=== PATIENT | female | born 1975 | race Two or more races ===

== ENCOUNTER 2018-05-10 12:54 | Observation (INO) | payer OTHER ==
[2018-05-10 13:07] VITALS: BMI 27.4
--- NOTE | 2018-05-10 14:22 | PDOC ---
History of Present Illness - General Chief Complaint: Blood Transfusion Stated Complaint: BLOOD TRANSFUSION (PCP SENT) Time Seen by Provider: 05/10/18 14:21 - History of Present Illness Initial Comments: 05/13/18 19:38 43 year old w/ history of RA, chronic anemia, hypothyroidism, uterine fibroids and fibromyalgia who was sent by her PCP for follow up on laboratory findings 2 weeks ago and possible blood transfusion. The patient admits to some feelings of weakness, but denies lightheadedness, excessive vaginal bleedings, blood in urine or stool, fevers, N/V/D/C, chest pain, sob or abdominal pain. PMHX: as in HPI PSHX: none Meds: levothyroxine Allergies: penicillin Tob: none Etoh: none Rec drugs: none Past History - Past Medical History Allergies/Adverse Reactions: Allergies Allergy/AdvReac Type Severity Reaction Status Date / Time iron [From Venofer] Allergy Verified 05/10/18 18:46 Penicillins Allergy Hives Verified 05/10/18 19:38 Home Medications: Ambulatory Orders Levothyroxine [Synthroid -] 0.137 mcg PO DAILY 07/05/12 Anemia: Yes (2 blood transfusions) CVA: No COPD: No Disorders: Yes (fibroids) Thyroid Disease: Yes (hypothyroid) Other medical history: fibromyalgia, rheumatoid arthritis, 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 - Suicide/Smoking/Psychosocial Hx Smoking Status: No Smoking History: Never smoked Have you smoked in the past 12 months: No Number of Cigarettes Smoked Daily: 0 Information on smoking cessation initiated: No Hx Alcohol Use: No Drug/Substance Use Hx: No Substance Use Type: Alcohol Review of Systems - Review of Systems Able to Perform ROS?: Yes Is the patient limited Thai proficient: No Constitutional: No: Chills, Fever HEENTM: No: Tinnitus Respiratory: No: Cough, Shortness of Breath Cardiac (ROS): No: Chest Pain, Lightheadedness, Palpitations ABD/GI: No: Constipated, Diarrhea, Nausea, Rectal Bleeding, Vomiting : No: Burning, Dysuria, Hematuria Neurological: No: Headache *Physical Exam - Vital Signs Last Vital Signs Temp Pulse Resp BP Pulse Ox 98.4 F 100 H 20 127/77 100 05/10/18 12:59 05/10/18 12:59 05/10/18 12:59 05/10/18 12:59 05/10/18 12:59 - Physical Exam Comments: GENERAL: Awake, alert, and fully oriented, in no acute distress HEAD: No signs of trauma, normocephalic, atraumatic EYES: PERRLA, EOMI, sclera anicteric, + conjunctival pallor ENT: oropharynx clear without exudates. Moist mucosa NECK: Normal ROM LUNGS: No distress, speaks full sentences, clear to auscultation bilaterally HEART: Regular rate and rhythm, normal S1 and S2, no murmurs, rubs or gallops, peripheral pulses normal and equal bilaterally. ABDOMEN: Soft, nontender, normoactive bowel sounds. No guarding, no rebound. No masses EXTREMITIES : Normal inspection, Normal range of motion, no edema. No clubbing or cyanosis. NEUROLOGICAL:Normal speech, normal gait, no focal sensorimotor deficits SKIN: Warm, Dry, normal turgor, no rashes or lesions noted ED Treatment Course - LABORATORY CBC & Chemistry Diagram: 05/11/18 08:25 05/11/18 08:25 Medical Decision Making - Medical Decision Making 43 year old w/ history of chronic anemia, RA, hyrpothyroidism, uterine fibroids , fibromyalgia who presents with Hb of 7.7 and sent be her PCP for possible transfusion. Martin (PCP) was contacted regarding the patient. She confirms patient's history and that she advised patient to come to ED once lab results were read. Bloodwork will be done to assess the patient for transfusion. HB 7, Patient type and crossed. Patient ready for transfusions and admitted to observation. *DC/Admit/Observation/Transfer Diagnosis at time of Disposition: Anemia - Discharge Dispostion Disposition: HOME Condition at time of disposition: Improved - Referrals - Patient Instructions - Post Discharge Activity
--- NOTE | 2018-05-10 14:30 | PDOC ---
Attending Attestation - Resident Resident Name: Elicia Longo - ED Attending Attestation I have performed the following: I have examined & evaluated the patient, The case was reviewed & discussed with the resident, I agree w/resident's findings & plan, Exceptions are as noted - HPI HPI: 05/10/18 16:16 The patient is a 43 year old female, with a significant past medical history of rheumatoid arthritis and Deb's thyroiditis, who presents to the emergency department with, a hemoglobin of 7. As per patient, she had her blood drawn at Dr. Cheng outpatient clinic. She reports that Dr. Salazar called her that her hemoglobin was 7 and she needed to report to the ED for a blood transfusion. As per Dr. Salazar, her hemoglobin is normally between 9-10. The patient is scheduled to get her menses next week. She reports associated shortness of breath and chest pain which she describes as normal to her. She denies recent fevers, chills, headache or dizziness. She denies recent nausea, vomit, diarrhea or constipation. She denies recent dysuria, frequency, urgency or hematuria. Allergies: Penicillins. Social history: Nonsmoker. Denies EtOH use and recreational drug use. Primary Care Physician: Dr. Connie Salazar - Physicial Exam PE: 05/10/18 16:17 +GENERAL: Slightly pale. Awake, alert, and fully oriented, in no acute distress HEAD: No signs of trauma EYES: PERRLA, EOMI, sclera anicteric, conjunctiva clear ENT: Auricles normal inspection, hearing grossly normal, nares patent, oropharynx clear without exudates. Moist mucosa NECK: Normal ROM, supple, no lymphadenopathy, JVD, or masses LUNGS: Breath sounds equal, clear to auscultation bilaterally. No wheezes, and no crackles HEART: Regular rate and rhythm, normal S1 and S2, no murmurs, rubs or gallops ABDOMEN: Soft, nontender, normoactive bowel sounds. No guarding, no rebound. No masses EXTREMITIES: Normal range of motion, no edema. No clubbing or cyanosis. No cords, erythema, or tenderness NEUROLOGICAL: Cranial nerves II through XII grossly intact. Normal speech, normal gait SKIN: Warm, Dry, normal turgor, no rashes or lesions noted. <Richard Davila - Last Filed: 05/10/18 16:16> - Medical Decision Making 05/10/18 18:07 Pt presents to the ED complaining of intermittent lightheadness. Sent in from PMD's office for hgb of 7.7--hgb is 7 on repeat labs here. PAtient is only midly symptomatic, but has a history of heavy menstrual bleeds with drop in her Hgb afterward, and is expecting her menses within a couple of days. Will admit to observation for transfusion. <Violetta Mccormack - Last Filed: 05/10/18 18:10> Attestations - Attestations 05/10/18 16:16 Documentation prepared by Richard Davila, acting as medical recruiter for Violetta Mccormack MD. <Richard Davila - Last Filed: 05/10/18 16:16>
[2018-05-10 15:08] LABS: BASO % 1.6 % (0-2.0); EOS % 2.5 % (0-4.5); HEMATOCRIT 22.8 % (32.4-45.2); LYMPH % 29.9 % (8-40); MCHC 30.9 g/dl (32.0-36.0); MEAN CELL VOLUME 58.8 fl (80-96); MEAN PLT VOLUME 8.6 fl (7.5-11.1); MONO % 11.7 % (3.8-10.2); NEUT % 54.3 % (42.8-82.8); PLATELET COUNT 220 K/MM3 (134-434); RBC 3.87 M/mm3 (3.60-5.2); WHITE BLOOD COUNT 3.1 K/mm3 (4.0-10.0)
[2018-05-10 15:09] LABS: MCH 18.2 pg (25.7-33.7)
[2018-05-10 16:42] LABS: ALBUMIN 3.8 g/dl (3.4-5.0); ANION GAP 8 (8-16); BILIRUBIN,TOTAL 0.3 mg/dL (0.2-1.0); BLOOD UREA NITROGEN 9 mg/dL (7-18); CALCIUM 8.2 mg/dL (8.5-10.1); CHLORIDE 110 mmol/L (98-107); CO2 24 mmol/L (21-32); CREATININE 0.6 mg/dL (0.55-1.02); GLUCOSE,RANDOM 97 mg/dL (74-106); SGPT/ALT 21 U/L (12-78); SODIUM 142 mmol/L (136-145); TOT PROT 7.1 g/dl (6.4-8.2)
[2018-05-10 16:43] LABS: ALK PHOS 145 U/L (45-117)
[2018-05-10 16:44] LABS: POTASSIUM 4.1 mmol/L (3.5-5.1); SGOT/AST 16 U/L (15-37)
--- NOTE | 2018-05-10 17:32 | HP ---
CHIEF COMPLAINT: sent by PCP for blood transfusion secondary to anemia found on routine lab PCP: Dr. Salazar HISTORY OF PRESENT ILLNESS: Patient is a 43 year old female with a significant past medical history of rheumatoid arthritis, cherelle's thyroiditis and uterine fibroids. She was sent to the ED today by her primary care physician after CBC done at PCP office showed hmg of 7. Patient hmg is usually between 9-10 per ED signout. Patient reports that she is scheduled to get her menses next week and usually bleeds heavy and at times with clots. She reports that she at times may get her menses twice per month. 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 Patient reports fatigue, loss of energy and shortness of breath with exertion. Patient is here for 2 units of PRBC, we will repeat her labs in a.m. and evaluate for improvement. She denies recent fevers, chills, headache or dizziness. She denies recent nausea, vomit, diarrhea or constipation. She denies recent dysuria, frequency, urgency or hematuria. Patient further reports an allergic reaction to IV venofer in the past where she became short of breath and had to be given steriods and nebulizers. ER course was notable for: (1) wbc 3.1 (2) hmg/hct 7.0/22.8 (3) stool occult blood negative Recent Travel: PAST MEDICAL HISTORY: rheumatoid arthritis, cherelle's thyroiditis and uterine fibroids. PAST SURGICAL HISTORY: Social History: Smoking: denies Alcohol: denies Drugs: denies Family History: Allergies Penicillins Allergy (Verified 07/05/12 19:44) Hives HOME MEDICATIONS: Home Medications Medication Instructions Recorded EPINEPHrine (EPI-PEN 0.3MG) 0.3 mg IM ASDIR #2 pens 07/05/12 [Epipen 0.3MG -] Levothyroxine [Synthroid] 0.137 mg PO DAILY 07/05/12 PHYSICAL EXAMINATION Vital Signs - 24 hr 05/10/18 05/10/18 05/10/18 12:59 16:29 17:10 Temperature 98.4 F 98.2 F 98.2 F Pulse Rate 100 H Pulse Rate [ 78 90 Left Apical] Respiratory 20 18 16 Rate Blood Pressure 127/77 Blood Pressure 112/71 119/51 [Left Arm] O2 Sat by Pulse 100 98 98 Oximetry (%) GENERAL: Awake, alert, and fully oriented, in no acute distress. HEAD: Normal with no signs of trauma. EYES: Pupils equal, round and reactive to light, extraocular movements intact, sclera anicteric, conjunctiva clear. No lid lag. EARS, NOSE, THROAT: Ears normal, nares patent, oropharynx clear without exudates. Moist mucous membranes. NECK: Normal range of motion, supple without lymphadenopathy, JVD, or masses. LUNGS: Breath sounds equal, clear to auscultation bilaterally. mild dry cough, non productive HEART: Regular rate and rhythm ABDOMEN: Soft, nontender, not distended, normoactive bowel sounds, no guarding, no rebound, no masses. No hepatomegaly or splenomegaly. MUSCULOSKELETAL: Normal range of motion at all joints. No bony deformities or tenderness. No CVA tenderness. UPPER EXTREMITIES: 2+ pulses, warm, well-perfused. No cyanosis. No clubbing. No peripheral edema. LOWER EXTREMITIES: 2+ pulses, warm, well-perfused. No calf tenderness. No peripheral edema. NEUROLOGICAL: Cranial nerves II-XII intact. Normal speech. Normal gait. PSYCHIATRIC: Cooperative. Good eye contact. Appropriate mood and affect. SKIN: Warm, dry, normal turgor, no rashes or lesions noted, normal capillary refill. Laboratory Results - last 24 hr 05/10/18 05/10/18 05/10/18 15:00 15:00 15:00 WBC 3.1 L RBC 3.87 Hgb 7.0 L Hct 22.8 L MCV 58.8 L MCH 18.2 L MCHC 30.9 L RDW 21.0 H Plt Count 220 D MPV 8.6 Absolute Neuts (auto) 1.7 Neutrophils % 54.3 D Lymphocytes % 29.9 D Monocytes % 11.7 H Eosinophils % 2.5 Basophils % 1.6 Nucleated RBC % 0 Sodium Potassium Chloride Carbon Dioxide Anion Gap BUN Creatinine Creat Clearance w eGFR Random Glucose Calcium Total Bilirubin AST ALT Alkaline Phosphatase Total Protein Albumin Urine HCG, Qual Negative Stool Occult Blood Blood Type O POSITIVE Antibody Screen Negative Crossmatch See Detail 05/10/18 05/10/18 15:37 15:55 WBC RBC Hgb Hct MCV MCH MCHC RDW Plt Count MPV Absolute Neuts (auto) Neutrophils % Lymphocytes % Monocytes % Eosinophils % Basophils % Nucleated RBC % Sodium 142 Potassium 4.1 Chloride 110 H Carbon Dioxide 24 Anion Gap 8 BUN 9 Creatinine 0.6 Creat Clearance w eGFR > 60 Random Glucose 97 Calcium 8.2 L Total Bilirubin 0.3 AST 16 ALT 21 Alkaline Phosphatase 145 H Total Protein 7.1 Albumin 3.8 Urine HCG, Qual Stool Occult Blood Negative Blood Type Antibody Screen Crossmatch ASSESSMENT/PLAN: Patient is a 43 year old female with a significant past medical history of rheumatoid arthritis, cherelle's thyroiditis and uterine fibroids. She was sent to the ED today by her primary care physician after CBC done at PCP office showed hmg of 7. Patient is here for 2 units of PRBC. Hematology: Chronic anemia: For 2 units of prbc today, repeat CBC in a.m. Patient reports allergy of IV venofer, allergy listed. Monitor labs,vitals. 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 Patient to follow up with RAILROAD BRAKE REPAIRER this Thursday. Endocrine: Hashimotos thyroidisis: On Synthroid fen tolerating PO monitor electrolytes regular diet prophy ambulation On observation. full code Visit type - Emergency Visit Emergency Visit: Yes ED Registration Date: 05/10/18 Care time: The patient presented to the Emergency Department on the above date and was hospitalized for further evaluation of their emergent condition. - New Patient This patient is new to me today: Yes Date on this admission: 05/11/18 - Critical Care Critical Care patient: No Hospitalist Screening - Colonoscopy Questionnaire Colonoscopy Questionnaire: Colonoscopy Questionnaire - Patient: 50 - 75 years old and never had a screening colonoscopy: Unknown History of colon or rectal polyps, or CA: Unknown History of IBD, Crohn's disease or UC: Unknown History of abdominal radiation therapy as a child: Unknown - Relative: 1 with colon or rectal CA, or polyps at age 60 or younger: Unknown Colon or rectal CA diagnosed at age 45 or younger: Unknown Multiple relatives with colon or rectal CA: Unknown - Outcome: Screening Result: Negative Screen
[2018-05-10] MEDS ORDERED: ACETAMINOPHEN 325 MG TABLET (FP) PO PRN (17:58)
[2018-05-10] MEDS ORDERED: RANITIDINE HCL 150 MG TABLET (FP) PO ONE (18:35)
[2018-05-10 18:39] LABS: ANISOCYTOSIS 3+; PLATELET ESTIMATE ADEQUATE
[2018-05-10] MEDS ORDERED: RANITIDINE HCL 150 MG TABLET (FP) PO SCH (22:00)
[2018-05-11] MEDS ORDERED: LEVOTHYROXINE NA 112 MCG TABLET (FP) ONE (06:16)
[2018-05-11] MEDS ORDERED: LEVOTHYROXINE NA 25 MCG TABLET (FP) ONE (06:16)
[2018-05-11 06:19] VITALS: PULSE 79
[2018-05-11] MEDS ORDERED: LEVOTHYROXINE 112 MCG, LEVOTHYROXINE 25 MCG PO SCH (07:00)
[2018-05-11 09:08] VITALS: BP 127/69; TEMP 97.8
[2018-05-11 09:12] LABS: HEMATOCRIT 29.3 % (32.4-45.2); HEMOGLOBIN 9.4 GM/dL (10.7-15.3); MCH 20.7 pg (25.7-33.7); MCHC 32.3 g/dl (32.0-36.0); MEAN CELL VOLUME 64.1 fl (80-96); MEAN PLT VOLUME 8.5 fl (7.5-11.1); PLATELET COUNT 206 K/MM3 (134-434); RBC 4.56 M/mm3 (3.60-5.2); RDW 26.8 % (11.6-15.6); WHITE BLOOD COUNT 4.3 K/mm3 (4.0-10.0)
[2018-05-11 09:25] LABS: ALBUMIN 3.5 g/dl (3.4-5.0); ANION GAP 7 (8-16); BLOOD UREA NITROGEN 11 mg/dL (7-18); CALCIUM 8.3 mg/dL (8.5-10.1); CHLORIDE 109 mmol/L (98-107); CO2 24 mmol/L (21-32); CREATININE 0.6 mg/dL (0.55-1.02); GLUCOSE,RANDOM 103 mg/dL (74-106); MAGNESIUM 1.9 mg/dL (1.8-2.4); SGOT/AST 13 U/L (15-37); SGPT/ALT 21 U/L (12-78); SODIUM 140 mmol/L (136-145)
[2018-05-11 09:27] LABS: ALK PHOS 140 U/L (45-117); BILIRUBIN,TOTAL 0.5 mg/dL (0.2-1.0); TOT PROT 6.9 g/dl (6.4-8.2)
[2018-05-11] MEDS ORDERED: LEVOTHYROXINE NA 25 MCG TABLET (FP) PO SCH (10:00)
--- NOTE | 2018-05-11 11:36 | DS ---
Physical Exam: SUBJECTIVE: Patient seen and examined at the bedside. Feels well, symptoms improve. In no acute distress. Tolerated blood transfusion well. No issues overnight. OBJECTIVE: Patient received 2 units of blood on admission, to follow up with PCP and [employer] [employer] outpatient. Vital Signs Period Temp Pulse Resp BP Sys/Young Pulse Ox Last 24 Hr 97.8 F-99.0 F 73-100 16-20 108-142/51-77 98-100 PHYSICAL EXAM GENERAL: Awake, alert, and fully oriented, in no acute distress. HEAD: Normal with no signs of trauma. EYES: Pupils equal, round and reactive to light, extraocular movements intact, sclera anicteric, conjunctiva clear. No lid lag. EARS, NOSE, THROAT: Ears normal, nares patent, oropharynx clear without exudates. Moist mucous membranes. NECK: Normal range of motion, supple without lymphadenopathy, JVD, or masses. LUNGS: Breath sounds equal, clear to auscultation bilaterally. mild dry cough, non productive HEART: Regular rate and rhythm ABDOMEN: Soft, nontender, not distended, normoactive bowel sounds, no guarding, no rebound, no masses. No hepatomegaly or splenomegaly. MUSCULOSKELETAL: Normal range of motion at all joints. No bony deformities or tenderness. No CVA tenderness. UPPER EXTREMITIES: 2+ pulses, warm, well-perfused. No cyanosis. No clubbing. No peripheral edema. LOWER EXTREMITIES: 2+ pulses, warm, well-perfused. No calf tenderness. No peripheral edema. NEUROLOGICAL: Cranial nerves II-XII intact. Normal speech. Normal gait. PSYCHIATRIC: Cooperative. Good eye contact. Appropriate mood and affect. SKIN: Warm, dry, normal turgor, no rashes or lesions noted, normal capillary refill. LABS Laboratory Results - last 24 hr 05/10/18 05/10/18 05/10/18 15:00 15:00 15:00 WBC 3.1 L RBC 3.87 Hgb 7.0 L Hct 22.8 L MCV 58.8 L MCH 18.2 L MCHC 30.9 L RDW 21.0 H Plt Count 220 D MPV 8.6 Absolute Neuts (auto) 1.7 Neutrophils % 54.3 D Lymphocytes % 29.9 D Monocytes % 11.7 H Eosinophils % 2.5 Basophils % 1.6 Nucleated RBC % 0 Hypochromia 2+ Platelet Estimate Adequate Anisocytosis 3+ Microcytosis 3+ Sodium Potassium Chloride Carbon Dioxide Anion Gap BUN Creatinine Creat Clearance w eGFR Random Glucose Calcium Magnesium Total Bilirubin AST ALT Alkaline Phosphatase Total Protein Albumin Urine HCG, Qual Negative Stool Occult Blood Blood Type O POSITIVE Antibody Screen Negative Crossmatch See Detail 05/10/18 05/10/18 05/11/18 15:37 15:55 08:25 WBC 4.3 RBC 4.56 Hgb 9.4 L Hct 29.3 L D MCV 64.1 L D MCH 20.7 L D MCHC 32.3 RDW 26.8 H Plt Count 206 MPV 8.5 Absolute Neuts (auto) Neutrophils % Lymphocytes % Monocytes % Eosinophils % Basophils % Nucleated RBC % Hypochromia Platelet Estimate Anisocytosis Microcytosis Sodium 142 Potassium 4.1 Chloride 110 H Carbon Dioxide 24 Anion Gap 8 BUN 9 Creatinine 0.6 Creat Clearance w eGFR > 60 Random Glucose 97 Calcium 8.2 L Magnesium Total Bilirubin 0.3 AST 16 ALT 21 Alkaline Phosphatase 145 H Total Protein 7.1 Albumin 3.8 Urine HCG, Qual Stool Occult Blood Negative Blood Type Antibody Screen Crossmatch 05/11/18 08:25 WBC RBC Hgb Hct MCV MCH MCHC RDW Plt Count MPV Absolute Neuts (auto) Neutrophils % Lymphocytes % Monocytes % Eosinophils % Basophils % Nucleated RBC % Hypochromia Platelet Estimate Anisocytosis Microcytosis Sodium 140 Potassium 4.0 Chloride 109 H Carbon Dioxide 24 Anion Gap 7 L BUN 11 Creatinine 0.6 Creat Clearance w eGFR > 60 Random Glucose 103 Calcium 8.3 L Magnesium 1.9 Total Bilirubin 0.5 AST 13 L ALT 21 Alkaline Phosphatase 140 H Total Protein 6.9 Albumin 3.5 Urine HCG, Qual Stool Occult Blood Blood Type Antibody Screen Crossmatch HOSPITAL COURSE: Date of Admission:05/10/18 Date of Discharge: 05/11/18 ASSESSMENT/PLAN: Patient is a 43 year old female with a significant past medical history of rheumatoid arthritis, cherelle's thyroiditis and uterine fibroids. She was sent to the ED on 05/10 by her primary care physician after CBC done at PCP office showed hmg of 7. Patient received 2 units of PRBC overnight. Hematology: Chronic anemia: Received 2 units of prbc overnight. Tolerated infusion well. hmg/hct now 9.4/29.3, which is patient's baseline. Patient reports allergy of IV venofer, allergy listed. Discussed repeat labs with Dr. Salazar who is in agreement with discharge. PCP follow up outpatient. [employer] Menorrhagia: chronic. Patient to follow up with [employer] this Thursday. Endocrine: Hashimotos thyroidisis: On Synthroid for discharge home today with PCP and [employer] follow up. On observation. full code Minutes to complete discharge: 60 Discharge Summary Reason For Visit: ANEMIA, MENORRHAGIA Condition: Improved - Instructions Diet, Activity, Other Instructions: Mrs Quiroz: You were under observation at [place] for anemia and were transfused 2 units of blood. You blood counts are now stable and back to your baseline. Please see Dr. Salazar next week repeat blood work. It is very important that you see your track sweeper as well for further workup. Please return to the ER if your symptoms return or worsen. Thank you. Referrals: Connie Salazar [Primary Care Provider] - 1 Week (Please make appointment with for follow up blood work. ) Disposition: HOME - Home Medications Comprehensive Discharge Medication List: Ambulatory Orders Levothyroxine [Synthroid -] 0.137 mcg PO DAILY 07/05/12 This patient is new to me today: No Emergency Visit: Yes ED Registration Date: 05/10/18 Care time: The patient presented to the Emergency Department on the above date and was hospitalized for further evaluation of their emergent condition. Critical Care patient: No - Discharge Referral Referred to [facility] No
== END 2018-05-11 12:06 | disposition home or self-care (01) ==
LOC: JER 12:54 → JERBED 20:07 → J8W 22:39
PROVIDERS: ADMIT Internal Medicine; ATTEND Nurse Practitioner Family
PROC: 30233N1 Transfusion of Nonautologous Red Blood Cells into Peripheral Vein, Percutaneous Approach (ICD-10-PCS; principal; 2018-05-10)
DX: D64.89 Other specified anemias (principal); E06.3 Autoimmune thyroiditis; E03.9 Hypothyroidism, unspecified; M79.7 Fibromyalgia; M06.9 Rheumatoid arthritis, unspecified; I77.9 Disorder of arteries and arterioles, unspecified; Z88.0 Allergy status to penicillin
CPT/HCPCS: 36415; 36430; 80053; 82272; 83735; 84703; 85025; 85027; 86850; 86900; 86901; 86922; 99285-25; G0378; P9038; P9058

== ENCOUNTER 2018-05-22 14:06 | Emergency (ER) | payer OTHER ==
[2018-05-22 14:19] VITALS: BMI 36.6
[2018-05-22] MEDS ORDERED: ACETAMINOPHEN 325 MG TABLET (FP) PO ONE (14:43)
[2018-05-22] MEDS ORDERED: ACETAMINOPHEN 325 MG TABLET (FP) ONE (14:45)
--- NOTE | 2018-05-22 14:47 | PDOC ---
History of Present Illness - General Chief Complaint: Shortness of Breath Stated Complaint: SOB/FEVER Time Seen by Provider: 05/22/18 14:20 - History of Present Illness Initial Comments: 05/22/18 14:42 43 year old female, with a significant past medical history of rheumatoid arthritis and Deb's thyroiditis, chronic iron deficiency anemia baseline Hb 9-10 who presents w/ cough, fever (100.4), and weakness for 2 days, now with shortness of breath onset 30min prior to arrival while she was lying back in bed. En route the patient received albuterol from EMS with relief. She reports decrease in PO intake since this AM due to feeling unwell. The patient received a blood transfusion of 2pRBCs in this ED on 05/10 for anemia Hb 7. The patient denies N/V/D/C, abdominal pain, headaches, dysuria, hematuria. PMHX: as in HPI PSHX: none Meds: levothyroxine Allergies: iron, penicillin Tob: none Etoh: none Rec drugs: none Past History - Past Medical History Allergies/Adverse Reactions: Allergies Allergy/AdvReac Type Severity Reaction Status Date / Time iron [From Venofer] Allergy Verified 05/10/18 18:46 Penicillins Allergy Hives Verified 05/10/18 19:38 Home Medications: Ambulatory Orders Levothyroxine [Synthroid -] 0.137 mcg PO DAILY 07/05/12 Albuterol Sulfate Inhaler - [Ventolin Hfa Inhaler -] 1 puff IH PRN #1 inhaler Anemia: Yes (2 blood transfusions) CVA: No COPD: No DVT: No Dementia: No GI Disorders: Yes (Fibromyalgia, RA) Disorders: Yes (fibroids) Thyroid Disease: Yes (hypothyroid) - Surgical History Orthopedic Surgery: Yes (Neuroma) - Suicide/Smoking/Psychosocial Hx Smoking Status: No Smoking History: Never smoked Have you smoked in the past 12 months: No Number of Cigarettes Smoked Daily: 0 Hx Alcohol Use: No Drug/Substance Use Hx: No Substance Use Type: Alcohol Hx Substance Use Treatment: No Review of Systems - Review of Systems Able to Perform ROS?: Yes Is the patient limited Chilean proficient: No Constitutional: Yes: Fever (subjective). No: Chills, Diaphoresis HEENTM: No: Tinnitus Respiratory: Yes: Cough, Shortness of Breath Cardiac (ROS): No: Chest Pain, Palpitations, Chest Tightness ABD/GI: No: Constipated, Diarrhea, Nausea, Vomiting : No: Burning, Dysuria, Hematuria Neurological: No: Headache, Numbness, Tingling *Physical Exam - Vital Signs Last Vital Signs Temp Pulse Resp BP Pulse Ox 98.4 F 100 H 20 132/79 100 05/22/18 14:14 05/22/18 14:14 05/22/18 14:14 05/22/18 14:14 05/22/18 14:14 - Physical Exam Comments: 05/22/18 15:00 GENERAL: Awake, alert, and fully oriented, in no acute distress HEAD: No signs of trauma, normocephalic, atraumatic EYES: EOMI, sclera anicteric, conjunctiva clear ENT: oropharynx clear without exudates. slightly dry mucosa NECK: Normal ROM, supple, no lymphadenopathy or masses LUNGS: No distress, speaks full sentences, clear to auscultation bilaterally, no dullness to percussion HEART: Regular rate and rhythm, normal S1 and S2, no murmurs, rubs or gallops, peripheral pulses normal and equal bilaterally. ABDOMEN: Soft, nontender, normoactive bowel sounds. No guarding, no rebound. No masses EXTREMITIES : Normal inspection, Normal range of motion, no edema. No clubbing or cyanosis. NEUROLOGICAL: Normal speech, normal gait, no focal sensorimotor deficits SKIN: Warm, Dry, normal turgor, no rashes or lesions noted ED Treatment Course - LABORATORY CBC & Chemistry Diagram: 05/22/18 15:17 05/22/18 15:17 - RADIOLOGY Radiology Studies Ordered: Category Date Time Status CHEST PA & LAT [RAD] Stat Radiology 05/22/18 14:40 Ordered Medical Decision Making - Medical Decision Making 05/22/18 14:59 43 year old female, with a significant past medical history of rheumatoid arthritis and Deb's thyroiditis, chronic iron deficiency anemia baseline Hb 9-10 who presents cough, subjective fever, and weakness for 2 days, now with shortness of breath onset 30min prior to arrival while she was lying back in bed. The patient received a blood transfusion of 2pRBCs in this ED on 05/10 for anemia Hb 7. DDX: viral URI vs PNA vs DHTR W/U: - CBC. CMP, LDH, TSH, Type & Screen - CXR - UA, UCx - EKG TX: - Tylenol - Fluids ED Course: Patient felt improved with albuterol en route. 05/22/18 17:13 CXR: unremarkable Labs: unchanged from baseline Patient stable for discharge. Advised to f.u with PCP. Given strict return precautions. *DC/Admit/Observation/Transfer Diagnosis at time of Disposition: Shortness of breath - Discharge Dispostion Disposition: HOME Condition at time of disposition: Stable Decision to Admit order: No - Prescriptions Prescriptions: Albuterol Sulfate Inhaler - [Ventolin Hfa Inhaler -] 1 puff IH PRN #1 inhaler - Referrals Referrals: Connie Salazar [Primary Care Provider] - - Patient Instructions Printed Discharge Instructions: DI for Shortness of Breath, DI for Common Cold Additional Instructions: You were seen in the ED for complaints of shortness of breath. In the ED you were evaluated with labwork and imaging. Your results were unremarkable and you showed improvement with symptomatic treatment. You are advised to follow up with your primary care physician within 1 week. Return to the ED immediately if you experience significant shortness of breath, headache, nausea, vomiting, fevers. - Post Discharge Activity
[2018-05-22] MEDS ORDERED: SODIUM CHLORIDE 1,000 ML IV SCH (15:00)
--- NOTE | 2018-05-22 15:05 | PDOC ---
Attending Attestation - Resident Resident Name: Lily Longoie - ED Attending Attestation I have performed the following: I have examined & evaluated the patient, The case was reviewed & discussed with the resident, I agree w/resident's findings & plan, Exceptions are as noted - HPI HPI: 05/22/18 15:04 43y F hx of RA, hashimotos, anemia (base hbg 9-10, recent admissio nfor anemia requiring tranfusion) present with subjective fever, cough, sob. Pt was well the past few days until last night when she felt body aches, malaise and mild dry non productive cough. Pt notes that she began coughing shortly before arrival and was coughing so much it was hard to catch er breath. EMS noted some wheezing and gave the pt albuterol with resolution of her sypmtoms. pt notes she is currently asypmtomatic and feels better (beside mild body aches. ) no recent travel o rknown sick contacts. no malcolm/leg swelling, hemoptysis. GENERAL: The patient is awake, alert, and fully oriented, Nontoxic - in no acute distress. HEAD: Normocephalic, atraumatic. EYES: extraocular movements intact, sclera anicteric, conjunctiva clear. ENT: Normal voice, Moist mucous membranes. NECK: Normal range of motion, supple LUNGS: Breath sounds equal, clear to auscultation bilaterally. No wheezes, no rhonchi, no rales. HEART: Regular rate and rhythm, normal S1 and S2 without murmur, rub or gallop. ABDOMEN: Soft, nontender, normoactive bowel sounds. No guarding, no rebound. . No CVA tenderness EXTREMITIES: Normal range of motion, no edema. No clubbing or cyanosis. No cords, erythema, or tenderness. NEUROLOGICAL: No facial assymetry, Normal speech, PSYCH: Normal mood, normal affect. SKIN: Warm, Dry, normal turgor suspect viral syndrome consider delayed transfusion rx wlil obtain basic labs, cxr will reassess - Medical Decision Making 05/22/18 16:52 labs reivewed cxr negative pt asymptmatic will dc with pmd fu retur nprecautions were discussed
[2018-05-22 15:13] LABS: URINE APPEARANCE CLEAR; URINE BILIRUBIN NEGATIVE (<2.0 mg/dL); URINE COLOR LTYELLOW; URINE GLUCOSE (UA) NEGATIVE (NEGATIVE); URINE KETONE NEGATIVE (NEGATIVE); URINE LEUK ESTERASE NEGATIVE (NEGATIVE); URINE NITRITE NEGATIVE (NEGATIVE); URINE PROTEIN NEGATIVE (NEGATIVE); URINE UROBILINOGEN NEGATIVE mg/dL (0.2-1.0)
[2018-05-22 15:28] LABS: BASO % 1.4 % (0-2.0); EOS % 0.1 % (0-4.5); HEMATOCRIT 29.5 % (32.4-45.2); HEMOGLOBIN 9.5 GM/dL (10.7-15.3); LYMPH % 28.2 % (8-40); MCH 20.5 pg (25.7-33.7); MCHC 32.1 g/dl (32.0-36.0); MEAN PLT VOLUME 8.8 fl (7.5-11.1); MONO % 11.6 % (3.8-10.2); NEUT % 58.7 % (42.8-82.8); PLATELET COUNT 259 K/MM3 (134-434); RBC 4.62 M/mm3 (3.60-5.2); RDW 28.5 % (11.6-15.6); WHITE BLOOD COUNT 2.6 K/mm3 (4.0-10.0)
[2018-05-22 15:29] LABS: EPI CELLS RARE /HPF (FEW)
[2018-05-22 15:48] LABS: ALBUMIN 4.2 g/dl (3.4-5.0); ALK PHOS 173 U/L (45-117); ANION GAP 7 (8-16); BILIRUBIN,TOTAL 0.7 mg/dL (0.2-1.0); BLOOD UREA NITROGEN 7 mg/dL (7-18); CALCIUM 8.3 mg/dL (8.5-10.1); CHLORIDE 109 mmol/L (98-107); CO2 24 mmol/L (21-32); CREATININE 0.6 mg/dL (0.55-1.02); GLUCOSE,RANDOM 107 mg/dL (74-106); POTASSIUM 3.7 mmol/L (3.5-5.1); SGOT/AST 24 U/L (15-37); SGPT/ALT 24 U/L (12-78); SODIUM 140 mmol/L (136-145); TOT PROT 7.5 g/dl (6.4-8.2)
[2018-05-22 17:25] VITALS: BP 119/65; PULSE 89; TEMP 98.1
--- NOTE | 2018-05-25 10:43 | EKG ---
Test Reason : Blood Pressure : / mmHG Vent. Rate : 107 BPM Atrial Rate : 107 BPM P-R Int : 158 ms QRS Dur : 076 ms QT Int : 330 ms P-R-T Axes : 039 042 014 degrees QTc Int : 440 ms SINUS TACHYCARDIA POSSIBLE LEFT ATRIAL ENLARGEMENT BORDERLINE ECG Confirmed by Gavino Myers MD ([id number]) on 05/25/2018 10:43:31 AM Referred By: TRISTIN Avalos NP Confirmed By:Gavino Myers MD
== END 2018-05-22 17:34 | disposition home or self-care (01) ==
LOC: JER 14:06
PROC: 3E0337Z Introduction of Electrolytic and Water Balance Substance into Peripheral Vein, Percutaneous Approach (ICD-10-PCS; principal; 2018-05-22)
DX: R06.02 Shortness of breath (principal); M06.9 Rheumatoid arthritis, unspecified; E06.3 Autoimmune thyroiditis; D50.9 Iron deficiency anemia, unspecified
CPT/HCPCS: 36415; 71046-TC-FY; 80053; 81003; 81015; 83615; 84443; 84703; 85025; 87086; 87186; 93005; 93010; 99283-25; J7030

== ENCOUNTER 2018-12-15 11:32 | Emergency (ER) | payer OTHER ==
[2018-12-15 11:49] VITALS: BMI 29.2
[2018-12-15 13:09] LABS: BASO % 1.5 % (0-2.0); EOS % 2.2 % (0-4.5); HEMATOCRIT 31.9 % (32.4-45.2); HEMOGLOBIN 10.5 GM/dL (10.7-15.3); LYMPH % 33.9 % (8-40); MCH 22.4 pg (25.7-33.7); MCHC 32.9 g/dl (32.0-36.0); MEAN PLT VOLUME 8.7 fl (7.5-11.1); MONO % 8.3 % (3.8-10.2); NEUT % 54.1 % (42.8-82.8); PLATELET COUNT 298 K/MM3 (134-434); RBC 4.69 M/mm3 (3.60-5.2); RDW 19.9 % (11.6-15.6); WHITE BLOOD COUNT 3.6 K/mm3 (4.0-10.0)
[2018-12-15 13:14] LABS: URINE APPEARANCE CLEAR; URINE BILIRUBIN NEGATIVE (<2.0 mg/dL); URINE COLOR STRAW; URINE GLUCOSE (UA) NEGATIVE (NEGATIVE); URINE KETONE NEGATIVE (NEGATIVE); URINE LEUK ESTERASE NEGATIVE (NEGATIVE); URINE NITRITE NEGATIVE (NEGATIVE); URINE PROTEIN NEGATIVE (NEGATIVE); URINE UROBILINOGEN NEGATIVE mg/dL (0.2-1.0)
[2018-12-15 13:45] LABS: ALK PHOS 166 U/L (45-117); ANION GAP 7 MMOL/L (8-16); BILIRUBIN,TOTAL 0.3 mg/dL (0.2-1); BLOOD UREA NITROGEN 12 mg/dL (7-18); CALCIUM 8.1 mg/dL (8.5-10.1); CHLORIDE 109 mmol/L (98-107); CO2 23 mmol/L (21-32); CREATININE 0.6 mg/dL (0.55-1.3); GLUCOSE,RANDOM 92 mg/dL (74-106); POTASSIUM 3.9 mmol/L (3.5-5.1); SGOT/AST 12 U/L (15-37); SGPT/ALT 20 U/L (13-61); SODIUM 139 mmol/L (136-145); TOT PROT 7.6 g/dl (6.4-8.2)
--- NOTE | 2018-12-15 13:54 | PDOC ---
History of Present Illness - General Chief Complaint: Pain Stated Complaint: SENT BY PCP / EVAL Time Seen by Provider: 12/15/18 12:23 History Source: Patient Exam Limitations: No Limitations - History of Present Illness Initial Comments: 12/15/18 13:50 43-year-old female presents to ED with 2 months of left rib pain radiating to her left thoracic area intermittently but has been more constant over the past week. Patient states is under the care of Dr. Preciado for anemia and does have history of RA, fibromyalgia, and flies frequently for work. Patient denies shortness of breath, fever, chills, cough, weakness or weight loss. Timing/Duration: other (x 2-3 months) Severity: moderate Associated Symptoms: reports: chest pain (left sharp lower left chest) Past History - Travel Traveled outside of the country in the last 30 days: No Close contact w/someone who was outside of country & ill: No - Past Medical History Allergies/Adverse Reactions: Allergies Allergy/AdvReac Type Severity Reaction Status Date / Time iron [From Venofer] Allergy Verified 12/15/18 11:42 Penicillins Allergy Hives Verified 12/15/18 11:42 Home Medications: Ambulatory Orders Levothyroxine [Synthroid -] 0.137 mcg PO DAILY 07/05/12 Naproxen Sodium [Aleve] 2 tab PO BID 12/15/18 Anemia: Yes (2 blood transfusions) CVA: No COPD: No DVT: No Dementia: No GI Disorders: Yes (Fibromyalgia, RA) Disorders: Yes (fibroids) Thyroid Disease: Yes (hypothyroid) - Surgical History Orthopedic Surgery: Yes (Neuroma) - Suicide/Smoking/Psychosocial Hx Smoking Status: No Smoking History: Never smoked Have you smoked in the past 12 months: No Number of Cigarettes Smoked Daily: 0 Hx Alcohol Use: Yes (OCCASIONAL) Drug/Substance Use Hx: No Substance Use Type: None Hx Substance Use Treatment: No Patient Lives Alone: No Lives with/in: spouse/SO Review of Systems - Review of Systems Able to Perform ROS?: No Is the patient limited Austrian proficient: No Constitutional: No: Symptoms Reported HEENTM: No: Symptoms Reported Respiratory: No: Symptoms reported Cardiac (ROS): Yes: Chest Pain ABD/GI: No: Symptoms Reported : No: Symptoms Reported Musculoskeletal: No: Symptoms Reported Integumentary: No: Symptoms Reported Neurological: No: Symptoms reported Hematologic/Lymphatic: Yes: See HPI *Physical Exam - Vital Signs Last Vital Signs Temp Pulse Resp BP Pulse Ox 98.1 F 87 18 125/62 99 12/15/18 11:48 12/15/18 11:48 12/15/18 11:48 12/15/18 11:48 12/15/18 11:48 - Physical Exam General Appearance: Yes: Nourished, Appropriately Dressed. No: Apparent Distress HEENT: positive: EOMI, JANES, TMs Normal. negative: Pharynx Normal, Pale Conjunctivae Neck: positive: Supple. negative: Decreased range of motion Respiratory/Chest: positive: Lungs Clear, Normal Breath Sounds. negative: Chest Tender, Respiratory Distress, Accessory Muscle Use Cardiovascular: positive: Regular Rhythm, Regular Rate. negative: Murmur Gastrointestinal/Abdominal: positive: Soft. negative: Tenderness Musculoskeletal: negative: CVA Tenderness, Vertebral Tenderness Extremity: positive: Normal Capillary Refill. negative: Pedal Edema Integumentary: positive: Normal Color, Warm, Moist Neurologic: positive: Motor Strength 5/5 (ambulatory) Moderate Sedation - Procedure Monitoring Vital Signs: Procedure Monitoring Vital Signs Temperature 98.1 F 12/15/18 11:48 Pulse Rate 87 12/15/18 11:48 Respiratory Rate 18 12/15/18 11:48 Blood Pressure 125/62 12/15/18 11:48 O2 Sat by Pulse Oximetry (%) 99 12/15/18 11:48 Heart Score/ECG Review - Electrocardiogram EKG: Normal - Age Age: </= 45 - Risk Factors Based on the list above the patient has:: No risk factors known - Troponin Troponin: </= normal limit - ECG Intrepretation Rhythm: Regular Rhythm (64. Normal sinus rhythm. No ST elevation or depression. Intervals are regular.) ED Treatment Course - LABORATORY CBC & Chemistry Diagram: 12/15/18 12:56 12/15/18 12:56 - ADDITIONAL ORDERS Additional order review: Laboratory Results 12/15/18 12/15/18 12/15/18 12:56 12:56 12:50 D-Dimer 616 H Sodium 139 Potassium 3.9 Chloride 109 H Carbon Dioxide 23 Anion Gap 7 L BUN 12 Creatinine 0.6 Creat Clearance w eGFR > 60 Random Glucose 92 Calcium 8.1 L Total Bilirubin 0.3 AST 12 L ALT 20 Alkaline Phosphatase 166 H Creatine Kinase 110 Troponin I < 0.02 Total Protein 7.6 Albumin 4.0 Urine Color Straw Urine Appearance Clear Urine pH 5.0 D Ur Specific Rudyard 1.010 Urine Protein Negative Urine Glucose (UA) Negative Urine Ketones Negative Urine Blood Negative Urine Nitrite Negative Urine Bilirubin Negative Urine Urobilinogen Negative Ur Leukocyte Esterase Negative 12/15/18 12:56 RBC 4.69 MCV 68.0 L MCHC 32.9 RDW 19.9 H MPV 8.7 Neutrophils % 54.1 Lymphocytes % 33.9 Monocytes % 8.3 Eosinophils % 2.2 Basophils % 1.5 - RADIOLOGY Radiology Studies Ordered: Category Date Time Status CHEST CTA [CT] Stat CT Scan 12/15/18 13:45 Ordered Medical Decision Making - Medical Decision Making 12/15/18 13:05 Chief complaint: Left-sided chest pain described as a sharp intermittent pain for the past few months not radiating to her left thoracic region and increasing severity over the past week. Patient states flies weekly for work and denies history of PE. 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 Exam: Vital signs stable. Lungs clear no reproducible discomfort on exam. Plan: Labs, EKG will determine if CT is necessary. 12/15/18 13:57 Laboratory Tests 12/15/18 12/15/18 12/15/18 12:50 12:56 12:56 WBC 3.6 L Hgb 10.5 L Hct 31.9 L MCH 22.4 L RDW 19.9 H D-Dimer 616 H Sodium Potassium Chloride Carbon Dioxide Anion Gap BUN Random Glucose Calcium Total Bilirubin AST ALT Alkaline Phosphatase Troponin I Albumin Serum , Qual Urine Ketones Negative Urine Nitrite Negative Urine Bilirubin Negative Ur Leukocyte Esterase Negative 12/15/18 12/15/18 12:56 12:56 WBC Hgb Hct MCH RDW D-Dimer Sodium 139 Potassium 3.9 Chloride 109 H Carbon Dioxide 23 Anion Gap 7 L BUN 12 Random Glucose 92 Calcium 8.1 L Total Bilirubin 0.3 AST 12 L ALT 20 Alkaline Phosphatase 166 H Troponin I < 0.02 Albumin 4.0 Serum , Qual Pending Urine Ketones Urine Nitrite Urine Bilirubin Ur Leukocyte Esterase Patient ordered for CTA of the chest. 12/15/18 15:24 CTA negative for acute findings. Will discharge patient home to follow-up with her PCP, , community health nurse supervisor, and pain management. *DC/Admit/Observation/Transfer Diagnosis at time of Disposition: Musculoskeletal chest pain - Discharge Dispostion Disposition: HOME Condition at time of disposition: Good - Referrals Referrals: Connie Salazar [Primary Care Provider] - Asa Preciado MD [Staff Physician] - - Patient Instructions Printed Discharge Instructions: DI for Musculoskeletal Pain Additional Instructions: Please follow-up with your doctors as needed. - Post Discharge Activity
--- NOTE | 2018-12-15 14:49 | EKG ---
Test Reason : Blood Pressure : / mmHG Vent. Rate : 064 BPM Atrial Rate : 064 BPM P-R Int : 192 ms QRS Dur : 084 ms QT Int : 418 ms P-R-T Axes : 046 027 029 degrees QTc Int : 431 ms NORMAL SINUS RHYTHM NORMAL ECG WHEN COMPARED WITH ECG OF 24-MAY-2018 21:03, VENT. RATE HAS DECREASED BY 43 BPM Confirmed by LAURY KC MD ([id number]) on 12/15/2018 2:49:13 PM Referred By: Confirmed By:LAURY KC MD
[2018-12-15 15:35] VITALS: BP 120/65; PULSE 80; TEMP 98.2
== END 2018-12-15 15:35 | disposition home or self-care (01) ==
LOC: JER 11:32
DX: M79.10 Myalgia, unspecified site (principal); M06.9 Rheumatoid arthritis, unspecified; E03.9 Hypothyroidism, unspecified
CPT/HCPCS: 36415; 71275-TC; 80053; 81003; 82550; 84484; 84703; 85025; 85379; 93005; 93010; 99282-25

== ENCOUNTER 2019-01-24 08:45 | Day surgery (SDC) | payer BC, OTHER ==
[2019-01-21 10:11] VITALS: BMI 36.2
[2019-01-24] MEDS ORDERED: MIDAZOLAM HCL 2 MG/2 ML SINGLE DOSE VIAL ONE (08:50)
[2019-01-24 12:34] VITALS: TEMP 97.6
[2019-01-24 13:37] VITALS: BP 123/69; PULSE 79
== END 2019-01-24 13:00 | disposition home or self-care (01) ==
LOC: JRADIR 08:45
PROVIDERS: ATTEND Internal Medicine Hematology & Oncology
PROC: 07DR3ZX Extraction of Iliac Bone Marrow, Percutaneous Approach, Diagnostic (ICD-10-PCS; principal; 2019-01-24)
DX: D75.81 Myelofibrosis (principal)
CPT/HCPCS: 20225; 76098-TC-FY; 76380-TC; 77012-TC; 84703; 87899; 88108; 88300-TC; 88305-TC; 88311-TC

== ENCOUNTER 2019-12-14 11:17 | Emergency (ER) | payer BC ==
[2019-12-14 11:25] VITALS: BMI 36.8
--- NOTE | 2019-12-14 12:08 | PDOC ---
History of Present Illness - General Chief Complaint: Eye Problem Stated Complaint: LFT EYE Time Seen by Provider: 12/14/19 11:37 - History of Present Illness Initial Comments: 12/14/19 12:03 CHIEF COMPLAINT: left sided eye droop HISTORY OF PRESENT ILLNESS: 44 yo F with hx of rheumatoid arthritis and Deb's thyroiditis, chronic iron deficiency anemia baseline Hb 9-10, and chronic leukopenia presents to ED with left sided facial and head pain described as a "burning/tingling" sensation since yesterday morning with facial droop that began last night. Patient states her was the one who first noticed the facial droop in the morning but she "didn't think much of it and I didn't want to go to the hospital so I made red snapper and vegetable rice and we had dinner and it was fine." Patient denies any difficulty eating, swallowing, speaking, or walking and denies any loss of consciousness or loss of memory. Patient reports she has an "enlarged artery" per her ENT to the left side of her neck. PCP: Dr. Connie Salazar PAST MEDICAL HISTORY: fibromyalgia, rheumatoid arthritis and Deb's thyroiditis, "kidney problem" FAMILY HISTORY: Denies SOCIAL HISTORY: Denies tobacco, alcohol, illicit drug use. SURGICAL HISTORY: Denies ALLERGIES: iron, PCN REVIEW OF SYSTEMS General/Constitutional: Denies fever or chills. Denies weakness, weight change. HEENT: Denies change in vision. Denies ear pain or discharge. Denies sore throat. Cardiovascular: Denies chest pain or shortness of breath. Respiratory: Denies cough, wheezing, or hemoptysis. Gastrointestinal: Denies nausea, vomiting, diarrhea or constipation. Denies rectal bleeding. Genitourinary: Denies dysuria, frequency, or change in urination. Musculoskeletal: Denies joint or muscle swelling or pain. Denies neck or back pain. Skin and breasts: Denies rash or easy bruising. Neurologic: Burning/tingling pain to L side of face/head. Denies vertigo, loss of consciousness, or loss of sensation. Psychiatric: Denies depression or anxiety. PHYSICAL EXAM General Appearance: Well-appearing, appropriately dressed. No apparent distress , no intoxication. HEENT: EOMI, PERRLA, normal ENT inspection, normal voice, TMs normal, pharynx normal. No conjunctival pallor. No photophobia, scleral icterus. Neck: Supple. Trachea midline. No tenderness, rigidity, carotid bruit, stridor , lymphadenopathy, or thyromegaly. Respiratory/Chest: Lungs CTAB. No shortness of breath, chest tenderness, respiratory distress, accessory muscle use. No crackles, rales, rhonchi, stridor , wheezing, dullness Cardiovascular: RRR. S1, S2. No JVD, murmur, bradycardia, tachycardia. Vascular Pulses: Dorsalis-Pedis (R): 2+, Dorsalis-Pedis (L): 2+ Gastrointestinal/Abdominal: Normal bowel sounds. Abdomen soft, non-distended. No tenderness or rebound tenderness. No organomegaly, pulsatile mass, guarding , hernia, hepatomegaly, splenomegaly. Lymphatic: No adenopathy, tenderness. Musculoskeletal/Extremities: Normal inspection. FROM of all extremities, normal capillary refill. Pelvis Stable. No CVA tenderness. No tenderness to extremities, pedal edema, swelling, erythema or deformity. Integumentary: Appropriate color, dry, warm. No cyanosis, erythema, jaundice or rash Neurologic: Minimal left sided ptosis. Other cranial nerves appear intact. Fully oriented, alert. Appropriate mood/affect. Motor strength 5/5. A&Ox3, follow commands, respond appropriately CN2-12: conjugate gaze, pupil round, equal and reactive to light. Visual field full to confrontation. EOMI without nystagmus, pursuit is smooth without saccade. Facial sensation and muscle activation intact bilaterally. Hearing intact bilaterally. Palate elevate symmetrically. Shoulder shrug and neck turn full strength. Tongue protrude midline. Motor: UE and LE strength 5/5 throughout bilaterally. Muscle tone and bulk normal. L shoulder abd 5/5 elbow F/E 5/5 wrist F/E 5/5 finger F/E 5/5 R shoulder abd 5/5 elbow F/E 5/5 wrist F/E 5/5 finger F/E 5/5 L hip F/E 5/5 knee F/E 5/5 ankle F/E 5/5 R hip F/E 5/5 knee F/E 5/5 ankle F/E 5/5 Sensory: pin prick & temp : BUE & BLE intact and equal bilaterally Vibration & propioception: intact bilaterally at 1st MCP and MTP joints. no sensory level noted on trunk Reflex: biceps brachioradialis triceps patellar achilles L 2+ 2+ 2+ 2+ 2+ R 2+ 2+ 2+ 2+ 2+ Plantar reflex downwards bilaterally. Cerebellar: Rapid-alternating movement with regular rhythm without bradykinesia. Gbdhof-jl-aony and lftz-vo-cntw intact bilaterally without dysmetria or overshoot. Gait narrow based. No shuffling. Full hip flexion and knee flexion. Negative Romberg No involuntary movement noted. No pronator drift. No clonus. Past History - Past Medical History Allergies/Adverse Reactions: Allergies Allergy/AdvReac Type Severity Reaction Status Date / Time iron [From Venofer] Allergy "stops Verified 12/14/19 11:25 breathing" Penicillins Allergy Hives Verified 12/14/19 11:25 Home Medications: Ambulatory Orders Calcitriol [Calcitriol -] 1 cap PO DAILY 12/14/19 Levothyroxine [Synthroid -] 125 mcg PO DAILY 12/14/19 Sod Phos Di, Graves/K Phos Graves [Virt-Phos 250 Neutral Tablet] 1 tab PO DAILY 01/29 Valacyclovir HCl [Valtrex -] 1,000 mg PO TID #30 tablet 12/14/19 predniSONE [Deltasone -] 60 mg PO DAILY #21 tablet 12/14/19 Anemia: Yes (2 blood transfusions) Asthma: No Cardiac Disorders: No CVA: No COPD: No CHF: No DVT: No Dementia: No Diabetes: No GI Disorders: Yes (Fibromyalgia, RA) Disorders: Yes (fibroids) HTN: No Hypercholesterolemia: No Liver Disease: No Seizures: No Thyroid Disease: Yes (HYPERTHYROID) - Surgical History Abdominal Surgery: No Appendectomy: No Cardiac Surgery: No Cholecystectomy: No Lung Surgery: No Neurologic Surgery: No Orthopedic Surgery: Yes (Neuroma; RIGHT FOOT) - Immunization History Immunization Up to Date: Yes - Psycho Social/Smoking Cessation Hx Smoking Status: No Smoking History: Never smoked Have you smoked in the past 12 months: No Number of Cigarettes Smoked Daily: 0 Information on smoking cessation initiated: No Hx Alcohol Use: No Drug/Substance Use Hx: No Substance Use Type: None Hx Substance Use Treatment: No *Physical Exam - Vital Signs Last Vital Signs Temp Pulse Resp BP Pulse Ox 98.3 F 8 L 18 129/61 98 12/14/19 11:21 12/14/19 11:21 12/14/19 11:21 12/14/19 11:21 12/14/19 11:21 ED Treatment Course - LABORATORY CBC & Chemistry Diagram: 12/14/19 12:00 12/14/19 12:00 - RADIOLOGY Radiology Studies Ordered: Category Date Time Status HEAD CT WITHOUT CONTRAST [CT] Stat CT Scan 12/14/19 11:57 Ordered Medical Decision Making - Medical Decision Making 12/14/19 12:30 44 yo F with hx of rheumatoid arthritis and Deb's thyroiditis, chronic iron deficiency anemia baseline Hb 9-10 presents to ED with left sided facial and head pain described as a "burning/tingling" sensation since yesterday morning with facial droop that began last night. Differential includes stroke/tia, sigala's palsy, shingles, malignancy. -head ct -labs -prednisone/valtrex 12/14/19 13:28 CT negative for intracranial findings. Discussed CT with radiology MD Murdock. Aside from mild left eye ptosis, patient has been neurologically intact during entire course of ER stay. Will dc patient with prednisone and Valtrex to cover for Sigala's Palsy vs shingles with close f/u with patient's neurologist. Discussed case with patient's PCP Dr. Salazar who agrees with plan. Advised patient of signs and symptoms for return to ER; patient verbalized understanding and agrees to plan. Discharge - Discharge Information Problems reviewed: Yes Clinical Impression/Diagnosis: Ptosis, left eyelid Condition: Stable Disposition: HOME - Admission No - Additional Discharge Information Prescriptions: predniSONE [Deltasone -] 60 mg PO DAILY #21 tablet Valacyclovir HCl [Valtrex -] 1,000 mg PO TID #30 tablet - Follow up/Referral Referrals: Adrien Mcdaniels MD [Staff Physician] - - Patient Discharge Instructions Patient Printed Discharge Instructions: DI for Sigala's Palsy, DI for Shingles Additional Instructions: Please take medications as prescribed and follow up with neurology by the end of this week of week. If you develop any new or worsening symptoms, including change in vision, difficulty speaking/swallowing/walking, loss of memory, change in mental status , or any new or worsening symptoms, please return to the ER immediately. - Post Discharge Activity
[2019-12-14] MEDS ORDERED: predniSONE 20 MG TABLET (UD) PO ONE (12:26)
[2019-12-14] MEDS ORDERED: valACYclovir HCL 1000 MG TABLET PO ONE (12:26)
--- NOTE | 2019-12-14 12:35 | EKG ---
Test Reason : Blood Pressure : / mmHG Vent. Rate : 082 BPM Atrial Rate : 082 BPM P-R Int : 190 ms QRS Dur : 076 ms QT Int : 394 ms P-R-T Axes : 039 017 017 degrees QTc Int : 460 ms NORMAL SINUS RHYTHM CANNOT RULE OUT ANTERIOR INFARCT , AGE UNDETERMINED ABNORMAL ECG WHEN COMPARED WITH ECG OF 17-JAN-2019 13:48, NO SIGNIFICANT CHANGE WAS FOUND Confirmed by MD ELADIA, WISAM ([id number]) on 12/14/2019 12:34:52 PM Referred By: Confirmed By:WISAM MONTILLA MD
[2019-12-14] MEDS ORDERED: valACYclovir HCL 500 MG TABLET (FP) ONE (12:49)
[2019-12-14] MEDS ORDERED: predniSONE 20 MG TABLET (UD) ONE (12:49)
[2019-12-14 12:58] LABS: BASO % 1.4 % (0-2.0); HEMATOCRIT 26.6 % (32.4-45.2); HEMOGLOBIN 8.2 GM/dL (10.7-15.3); LYMPH % 31.5 % (8-40); MEAN CELL VOLUME 62.3 fl (80-96); MEAN PLT VOLUME 9.1 fl (7.5-11.1); MONO % 10.3 % (3.8-10.2); NEUT % 54.8 % (42.8-82.8); PLATELET COUNT 267 K/MM3 (134-434); RBC 4.27 M/mm3 (3.60-5.2); RDW 19.8 % (11.6-15.6); WHITE BLOOD COUNT 2.7 K/mm3 (4.0-10.0)
[2019-12-14 13:00] LABS: MCH 19.3 pg (25.7-33.7)
[2019-12-14 13:09] LABS: INR 1.01 (0.83-1.09); PROTHROMBIN TIME (PATIENT) 11.9 SEC (9.7-13.0)
[2019-12-14 13:12] LABS: ACTIVATED PTT 41.7 SECONDS (25.2-36.5)
[2019-12-14 13:18] LABS: ALBUMIN 3.7 g/dl (3.4-5.0); BILIRUBIN,TOTAL 0.3 mg/dL (0.2-1); BLOOD UREA NITROGEN 8.6 mg/dL (7-18); CALCIUM 8.1 mg/dL (8.5-10.1); CREATININE 0.6 mg/dL (0.55-1.3); TOT PROT 7.5 g/dl (6.4-8.2)
[2019-12-14 13:41] LABS: ANISOCYTOSIS 3+; MACROCYTOSIS 0; PLATELET ESTIMATE NORMAL
[2019-12-14 14:10] VITALS: BP 140/63; PULSE 86; TEMP 98.4
== END 2019-12-14 14:22 | disposition home or self-care (01) ==
LOC: JER 11:17
DX: H02.402 Unspecified ptosis of left eyelid (principal); Z88.0 Allergy status to penicillin; Z88.8 Allergy status to other drugs, medicaments and biological substances; M06.9 Rheumatoid arthritis, unspecified; E06.3 Autoimmune thyroiditis; D50.9 Iron deficiency anemia, unspecified
CPT/HCPCS: 36415; 70450-TC; 80053; 80061; 83721; 85025; 85610; 85730; 93005; 93010; 99285-25

== ENCOUNTER 2021-02-20 04:23 | Day surgery (SDC) | payer BC ==
[2021-02-15 10:36] VITALS: BMI 36.8
[2021-02-20] MEDS ORDERED: MIDAZOLAM HCL 2 MG/2 ML SINGLE DOSE VIAL ONE ×2 (08:44→09:39)
[2021-02-20] MEDS ORDERED: PROPOFOL 20 ML ONE ×2 (08:44→09:43)
[2021-02-20] MEDS ORDERED: LIDOCAINE HCL 1%, 10 MG/ML (20ML VIAL) ONE (09:03)
[2021-02-20] MEDS ORDERED: methylPREDNISolone ACET (DEPO) 80 MG/1 ML VIAL ONE (09:23)
[2021-02-20] MEDS ORDERED: CLINDAMYCIN 600 MG PREMIX BAG IVPB ONE (09:49)
[2021-02-20] MEDS ORDERED: methylPREDNISolone ACET (DEPO) 80 MG/1 ML VIAL IJ ONE (09:50)
[2021-02-20] MEDS ORDERED: CLINDAMYCIN PHOSPHATE 600 MG/4 ML VIAL ONE (09:54)
[2021-02-20] MEDS ORDERED: DEXAMETHASONE SOD PHOSPHATE 4 MG/1 ML VIAL ONE (09:54)
[2021-02-20] MEDS ORDERED: ONDANSETRON 4 MG/2 ML VIAL ONE (09:54)
[2021-02-20] MEDS ORDERED: KETOROLAC TROMETHAMINE 30 MG/1 ML VIAL ONE (09:54)
[2021-02-20] MEDS ORDERED: BUPIVACAINE HCL/PF 0.5% (5 MG/ML) 30 ML VIAL IJ ONE (10:00)
[2021-02-20] MEDS ORDERED: LIDOCAINE HCL 1%, 10 MG/ML (20ML VIAL) NR ONE (10:00)
[2021-02-20 13:08] VITALS: PULSE 74
[2021-02-20 13:11] VITALS: BP 119/74; TEMP 97.5
== END 2021-02-20 12:10 | disposition home or self-care (01) ==
LOC: JASU-SURG 04:23
PROVIDERS: ATTEND Orthopaedic Surgery
PROC: 3E0233Z Introduction of Anti-inflammatory into Muscle, Percutaneous Approach (ICD-10-PCS; 2021-02-20)
PROC: 01N50ZZ Release Median Nerve, Open Approach (ICD-10-PCS; principal; 2021-02-20 09:00)
DX: G56.02 Carpal tunnel syndrome, left upper limb (principal); M65.311 Trigger thumb, right thumb
CPT/HCPCS: 81025